=== PATIENT | male | born 1965 | race American Indian/Alaskan Native ===

== ENCOUNTER 2018-01-27 11:30 | Emergency (ER) | payer MEDICAID ==
[2018-01-27 11:37] VITALS: BP 197/115
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
[2018-01-27 12:22] LABS: BUN/Creatinine Ratio 11; Blood Urea Nitrogen 11 mg/dL (9-20); Calcium 9.4 mg/dL (8.4-10.2); Hemolysis Index 6
[2018-01-27 12:33] LABS: Basophils % (Auto) 0.4 % (0.0-1.8); Eosinophils # (Auto) 0.1 K/mm3 (0.0-0.4); Eosinophils % (Auto) 2.3 % (0.0-4.3); Lymphocytes # (Auto) 1.8 K/mm3 (1.2-5.4); Lymphocytes % (Auto) 35.4 % (13.4-35.0); Mean Corpuscular HGB Conc 30 % (32-34); Mean Corpuscular Volume 73 fl (84-94); Monocytes # (Auto) 0.5 K/mm3 (0.0-0.8); Monocytes % (Auto) 9.2 % (0.0-7.3); Platelet Count 276 K/mm3 (140-440); Red Blood Count 5.74 M/mm3 (3.65-5.03); Red Cell Distribution Width 17.7 % (13.2-15.2)
[2018-01-27 12:37] LABS: Hematocrit 41.8 % (35.5-45.6); Hemoglobin 12.7 gm/dl (11.8-15.2); Mean Corpuscular Hemoglobin 22 pg (28-32)
--- NOTE | 2018-01-27 14:16 | Emergency Department Report ---
<MARLENEANTIONE REARDON Jackie - Last Filed: 01/27/18 14:16> ED Abdominal Pain HPI - General Chief Complaint: Pain General Stated Complaint: SWELLING Time Seen by Provider: 01/27/18 13:54 Source: patient Mode of arrival: Ambulatory Limitations: No Limitations - Related Data Previous Rx's Medication Instructions Recorded Last Taken Type Diclofenac Dr (Nf) 50 mg PO BID #60 tablet. 07/01/16 Unknown Rx HYDROcodone/APAP 5-325 [Kent 1 each PO Q6HR PRN #20 tablet 07/01/16 Unknown Rx 5/325] Colchicine [Colcrys] 0.6 mg PO DAILY #30 tablet 01/27/18 Unknown Rx Losartan [Cozaar] 25 mg PO QDAY #30 tablet 01/27/18 Unknown Rx oxyCODONE /ACETAMINOPHEN [Percocet 1 tab PO Q6HR PRN #12 tablet 01/27/18 Unknown Rx 5/325 mg] Allergies Allergy/AdvReac Type Severity Reaction Status Date / Time No Known Allergies Allergy Unverified 10/02/15 16:00 ED Review of Systems ROS: Stated complaint: SWELLING Other details as noted in HPI ED Past Medical Hx - Past Medical History Previous Medical History?: Yes Hx Hypertension: Yes Additional medical history: gout - Surgical History Past Surgical History?: No - Social History Smoking Status: Never Smoker Substance Use Type: Alcohol, Prescribed - Medications Home Medications: Home Medications Medication Instructions Recorded Confirmed Last Taken Type Diclofenac Dr (Nf) 50 mg PO BID #60 tablet. 07/01/16 Unknown Rx HYDROcodone/APAP 5-325 [Kent 1 each PO Q6HR PRN #20 tablet 07/01/16 Unknown Rx 5/325] Colchicine [Colcrys] 0.6 mg PO DAILY #30 tablet 01/27/18 Unknown Rx Losartan [Cozaar] 25 mg PO QDAY #30 tablet 01/27/18 Unknown Rx oxyCODONE /ACETAMINOPHEN [Percocet 1 tab PO Q6HR PRN #12 tablet 01/27/18 Unknown Rx 5/325 mg] ED Physical Exam - General Limitations: No Limitations ED Course Vital Signs 01/27/18 11:34 Temperature 98.4 F Pulse Rate 74 Respiratory 20 Rate Blood Pressure 197/115 O2 Sat by Pulse 97 Oximetry ED Medical Decision Making - Lab Data Result diagrams: 01/27/18 11:49 01/27/18 11:49 Critical care attestation.: If time is entered above; I have spent that time in minutes in the direct care of this critically ill patient, excluding procedure time. ED Disposition Clinical Impression: Gout attack Qualifiers: Gout site: unspecified site Gout etiology: unspecified cause Qualified Code(s) : M10.9 - Gout, unspecified Hypertension Qualifiers: Hypertension type: essential hypertension Qualified Code(s): I10 - Essential ( primary) hypertension Disposition: DC- TO HOME OR SELFCARE Condition: Stable Instructions: Hypertension (ED) Prescriptions: Colchicine [Colcrys] 0.6 mg PO DAILY #30 tablet Losartan [Cozaar] 25 mg PO QDAY #30 tablet oxyCODONE /ACETAMINOPHEN [Percocet 5/325 mg] 1 tab PO Q6HR PRN #12 tablet PRN Reason: Pain Referrals: [facility] [Outside] - 3-5 Days <MASHA VERGARA - Last Filed: 01/27/18 14:36> ED Abdominal Pain HPI - History of Present Illness Initial Comments: Patient is a 52-year-old [place] male who is presenting with pain in his bilateral great toes as well as his right knee secondary to gout. Patient states he 7 difficulty walking. Patient states there is swelling as well. Patient denies any fever chills nausea vomiting or trauma at this time. Patient states he's had gout multiple times in the past. Patient is out of his colchicine. Patient also states he is out of his blood pressure medicine as well for the past month. Patient denies any chest pain shortness of breath decreased urination at this time. ED Review of Systems Comment: All other systems reviewed and negative ED Physical Exam - General General appearance: alert, in no apparent distress - Head Head exam: Present: atraumatic, normocephalic - Eye Eye exam: Present: normal appearance - ENT ENT exam: Present: mucous membranes moist - Neck Neck exam: Present: normal inspection - Respiratory Respiratory exam: Present: normal lung sounds bilaterally. Absent: respiratory distress, wheezes, rales, rhonchi - Cardiovascular Cardiovascular Exam: Present: regular rate, normal rhythm. Absent: systolic murmur, diastolic murmur, rubs, gallop - GI/Abdominal GI/Abdominal exam: Present: soft, normal bowel sounds - Rectal Rectal exam: Present: deferred - Extremities Exam Extremities exam: Present: other (patient has some mild swelling and tenderness to palpation to the bilateral bases of the great toes as well as the right knee. He has decreased range of motion secondary to pain. There is no erythema or warmth.) - Back Exam Back exam: Present: normal inspection - Neurological Exam Neurological exam: Present: alert, oriented X3 - Psychiatric Psychiatric exam: Present: normal affect, normal mood - Skin Skin exam: Present: warm, dry, intact, normal color. Absent: rash ED Medical Decision Making - Lab Data Result diagrams: 01/27/18 11:49 01/27/18 11:49 - EKG Data -: EKG Interpreted by Me - EKG Data Interpretation: other (EKG shows sinus rhythm at a rate of 69 is left anterior fascicular block axis is leftward intervals are normal there is no ST segment elevations or depressions time interpretations 1145) - Medical Decision Making Patient is a 52-year-old [place] male presented with gout pain as well as hypertension. Patient has no signs of end organ damage from hypertension and will be placed back on his blood pressure medicines. Patient will be started on colchicine be given his Decadron shot here in emergency department and pain meds and be discharged home. ED Disposition Is pt being admited?: No Does the pt Need Aspirin: No
[2018-01-27] MEDS ORDERED: CATAPRES PO ONE (14:31)
[2018-01-27] MEDS ORDERED: COLCRYS PO ONE (14:31)
[2018-01-27] MEDS ORDERED: DECADRON IM ONE (14:31)
[2018-01-27] MEDS ORDERED: PERCOCET 5/325 PO ONE (14:31)
[2018-01-27] MEDS ORDERED: TORADOL IM ONE (14:31)
== END 2018-01-27 15:20 | disposition home or self-care (01) ==
LOC: ED 11:30
DX: M10.9 Gout, unspecified (principal); I10 Essential (primary) hypertension
CPT/HCPCS: 36415; 71046; 80048; 83880; 85025; 93005; 93010; 96372; 99284; J1100; J1885